=== PATIENT | female | born 1945 | race Caucasian/White ===

== ENCOUNTER 2017-11-25 02:30 | Emergency (ER) | payer MEDICARE, OTHER ==
[~2017-11-25] VITALS: Ht 149.9 cm; Wt 69.3 kg
[2017-11-25 02:39] VITALS: BP 169/68
[2017-11-25] MEDS ORDERED: METHOCARBAMOL 750 MG TABLET ONE (03:14)
[2017-11-25] MEDS ORDERED: ACETAMINOPHEN 325 MG TABLET ONE (03:14)
[2017-11-25] MEDS ORDERED: ACETAMINOPHEN 325 MG TABLET PO ONE (03:30)
[2017-11-25] MEDS ORDERED: METHOCARBAMOL 750 MG TABLET PO ONE (03:30)
[2017-11-25] MEDS ORDERED: PLEASE ENTER ALLERGIES MC SCH (03:30)
== END 2017-11-25 04:00 | disposition home or self-care (01) ==
LOC: ED 03:15
DX: S16.1XXA Strain of muscle, fascia and tendon at neck level, initial encounter (principal); I10 Essential (primary) hypertension; X50.9XXA Other and unspecified overexertion or strenuous movements or postures, initial encounter; X50.0XXA Overexertion from strenuous movement or load, initial encounter; Y93.89 Activity, other specified; Y99.8 Other external cause status; Y92.89 Other specified places as the place of occurrence of the external cause
CPT/HCPCS: 99283

== ENCOUNTER → 2018-02-01 | Outpatient (CLI) | payer MEDICARE, OTHER | END | disposition home or self-care (01) | LOC: CFH 14:31 | PROVIDERS: ATTEND Nurse Practitioner Family | DX: Z12.31 Encounter for screening mammogram for malignant neoplasm of breast (principal); Z80.3 Family history of malignant neoplasm of breast | CPT/HCPCS: 77063; 77067 ==

== ENCOUNTER → 2019-06-01 | Outpatient (CLI) | payer MEDICARE, OTHER | END | disposition home or self-care (01) | LOC: CFH 12:35 | PROVIDERS: ATTEND Internal Medicine | DX: N63.11 Unspecified lump in the right breast, upper outer quadrant (principal); N64.89 Other specified disorders of breast | CPT/HCPCS: 76642; 77065 ==

== ENCOUNTER → 2019-06-16 | Outpatient (CLI) | payer MEDICARE, OTHER ==
[~2019-06-16] MED LIST: LIDOCAINE 1%, 20ML ONE; LIDOCAINE 1%-EPI 1:100K, 20ML ONE; SODIUM BICARBONATE 4.2%, 5ML ONE
== END | disposition home or self-care (01) ==
LOC: CFH 08:36
PROVIDERS: ATTEND Internal Medicine
DX: N63.11 Unspecified lump in the right breast, upper outer quadrant (principal); C50.411 Malignant neoplasm of upper-outer quadrant of right female breast
CPT/HCPCS: 19083; 77065; 88305; 88360; J3490; 19285

== ENCOUNTER 2019-07-14 07:28 | Day surgery (SDC) | payer MEDICARE, OTHER ==
[~2019-07-14] VITALS: Ht 149.9 cm; Wt 67.2 kg
[~2019-07-14 07:28] MED LIST changes: +CHOL10003 PO; -LIDOCAINE 1%, 20ML ONE; -LIDOCAINE 1%-EPI 1:100K, 20ML ONE; +LISI40TA PO; +MULT-516 PO; +NIAC500T9 PO; +OMEG-14 PO; -SODIUM BICARBONATE 4.2%, 5ML ONE; +TURM500C4 PO; +UBID100C41 PO; +VITA40TA PO; +VITAMIN B6 PO
[2019-07-14] MEDS ORDERED: LACTATED RINGERS 1,000 ML IV SCH (07:44)
[2019-07-14 07:45] VITALS: BP 154/84
[2019-07-14] MEDS ORDERED: MIDAZOLAM 1 MG/ML, 2ML ONE (09:03)
[2019-07-14] MEDS ORDERED: FENTANYL PF 250 MCG/5ML ONE (09:03)
[2019-07-14] MEDS ORDERED: BUPIVACAINE/PF-EPI 0.5% 1:200K ONE (09:09)
[2019-07-14] MEDS ORDERED: ISOSULFAN BLUE 10 MG/ML, 5ML IV ONE (09:09)
[2019-07-14] MEDS ORDERED: ONDANSETRON 2MG/ML, 2ML IVPush PRN (11:30)
[2019-07-14] MEDS ORDERED: KETOROLAC 30 MG/1 ML IV PRN (11:30)
[2019-07-14] MEDS ORDERED: MEPERIDINE/PF 25MG/0.5ML IVPush PRN (11:30)
[2019-07-14] MEDS ORDERED: OXYcodone 5 MG/5 ML ORAL.SOL UDC PO PRN (11:30)
[2019-07-14] MEDS ORDERED: DIAZEPAM 5 MG/ML, 2ML IV PRN ×2 (11:30)
[2019-07-14] MEDS ORDERED: LABETALOL 5MG/ML, 20ML IV PRN (11:30)
[2019-07-14] MEDS ORDERED: METOCLOPRAMIDE 5 MG/ML, 2ML IV PRN (11:30)
[2019-07-14] MEDS ORDERED: ALBUTEROL SULFATE 2.5 MG/3 ML NPPB PRN (11:30)
[2019-07-14] MEDS ORDERED: PROMETHAZINE 25 MG/ML, 1ML IV PRN (11:30)
[2019-07-14] MEDS ORDERED: hydrALAzine 20 MG/ML, 1ML IV PRN (11:30)
[2019-07-14] MEDS ORDERED: HYDROmorphone 1 MG/ML, 1ML INJ IV PRN (11:30)
[2019-07-14] MEDS ORDERED: OXYcodone 5 MG/5 ML ORAL.SOL UDC ONE (11:48)
[2019-07-14] MEDS ORDERED: FENTANYL PF 100 MCG/2ML ONE (11:48)
[2019-07-14] MEDS: FENTANYL PF 100 MCG/2ML IV PRN ×2 (11:50→12:09)
[2019-07-14] MEDS ORDERED: KETOROLAC 30 MG/1 ML ONE (12:14)
[2019-07-14] MEDS ORDERED: ONDANSETRON 2MG/ML, 2ML ONE (14:20)
[2019-07-14] MEDS ORDERED: DEXAMETHASONE 4 MG/ML, 1ML ONE (14:20)
[2019-07-14] MEDS ORDERED: CEFAZOLIN 1,000 MG ONE (14:20)
[2019-07-14] MEDS ORDERED: SUCCINYLCHOLINE 20 MG/ML, 10ML ONE (14:20)
[2019-07-14] MEDS ORDERED: PROPOFOL 10 MG/ML, 20ML ONE (14:20)
[2019-07-14] MEDS ORDERED: ROCURONIUM 10MG/ML,5ML ONE (14:20)
== END 2019-07-14 14:05 | disposition home or self-care (01) ==
LOC: OUT 07:28 → EDSTATUS 09:30 → OUT 14:05
PROVIDERS: ATTEND Surgery
DX: C50.411 Malignant neoplasm of upper-outer quadrant of right female breast (principal); I10 Essential (primary) hypertension; F41.9 Anxiety disorder, unspecified; F32.9 Major depressive disorder, single episode, unspecified; Z79.899 Other long term (current) drug therapy; Z85.828 Personal history of other malignant neoplasm of skin; Z80.3 Family history of malignant neoplasm of breast
CPT/HCPCS: 19301; 19316; 38525; 38792; 76098; 88307; 88329; 88333; 93005; A9541; J0330; J0690; J1100; J1885; J2250; J2405; J2704; J3010; J7120

== ENCOUNTER → 2020-08-21 | Outpatient (CLI) | payer MEDICARE, OTHER ==
[~2020-08-21] MED LIST changes: -LISI40TA PO; +LISI40TA9 PO
== END | disposition home or self-care (01) ==
LOC: CFH 14:18
PROVIDERS: ATTEND Surgery
DX: R92.1 Mammographic calcification found on diagnostic imaging of breast (principal); Z85.3 Personal history of malignant neoplasm of breast
CPT/HCPCS: 77062; 77066; G0279